=== PATIENT | female | born 1940 | race Caucasian/White ===

== ENCOUNTER → 2017-09-03 | Outpatient (CLI) | payer OTHER ==
[~2017-09-03] VITALS: Ht 264.2 cm; Wt 54.3 kg
[~2017-09-03] MED LIST: ASPIRIN325 PO; CALCIUM500 M1 PO; CELEXA10 MG PO; CENTRUM SILVER1 EAC4 PO; IBUPROFEN 200200 M1 PO; LEXAPRO 10 MG T10 M2 PO; LIPITOR 20 MG T20 M1 PO; LISINOPRIL20 MG PO; LISINOPRIL40 MG PO; MAGNESIUM250 M1 PO; MAGOX 400400 MG PO; NABUMETONE 500500 M2 PO; NORVASC5 MG PO; TOPROL XL25 MG PO; VITAMIN B-12500 MCG PO; ZOCOR20 MG PO
--- NOTE | ~2017-09-03 | HPC ---
[facility] [address] [place] [address] PAIN MANAGEMENT CONSULTATION Name: JAYY AVITIA Room #: REG [facility] Vladislav#: [id number] Admission: 09/03/17 Attend Phys: Ozzie Wood DO Discharge: Date of : 40 Report #: [id number] THIS REPORT FOR: //name// CC: UJAN Wood The patient is a very pleasant 77-year-old female seen in consultation at the request of Dr. Rigo Lynch for assistance with management of pain in left hip, buttock, posterior lateral leg to the foot. The patient notes symptoms began several months ago without specific antecedent trauma and overuse. It has been 4 or 5 months out of the year in [place]. They returned 2 weeks ago with increased lifting and moving. When they arrived home, symptoms significantly got worse. She notes she does have paresthesia down to the lateral aspect of the leg, burning dysesthesia in L4 distribution. Fortunately, she denies weakness, myelopathic symptoms including bowel or bladder continence changes or saddle anesthesia. To her credit, she has been doing core therapy, strengthening and stretching exercises since symptoms were noted. She does take ibuprofen over the counter all with nominal efficacy. She rates her pain at 7-8 on VAS. She describes steady, burning, aching pain exacerbated with walking, some relief with heat. REVIEW OF SYSTEMS: Complete review of systems attached to chart and gone over with the patient. She is , does not smoke or drink alcohol to excess. Hypertension, treated with metoprolol, lisinopril and Norvasc, Lexapro for some chronic anxiety and depression. Otherwise, 12 point review of systems is noncontributory. The patient is retired. Pain impact score is 37/70. Physical exam reveals a 5 feet 4 inch, 120 pound female. Blood pressure is 119/59, pulse 71, respirations 16. Cranial nerves 2-12 are grossly intact. Pupils are equal and react to light and accommodation. Extraocular muscles are intact. Thyroid is unremarkable. Cervical range of motion is full. Upper extremity strength is preserved. Heart is regular and rhythmical without murmur. Lungs clear to auscultation. Rises from chair using armrest. Has a modestly antalgic gait. Lumbar flexion is good to 90 degrees. She is unable to walk on her left heel. Toe walking is symmetric. Grossly positive straight leg raise at 30 degrees on the left. Left dorsiflexion and lower extremity extension strength is diminished 3/5, hip flexion is about 4/5, all exacerbate pain. Right leg is stronger at 4-5/5 with negative straight leg raise. Patellar and Achilles reflexes are generally preserved. Skin integument is intact. There are no recent diagnostic studies available for evaluation at this time. [address] [address] PAIN MANAGEMENT CONSULTATION Name: JAYY AVITIA Room #: REG [facility]#: [id number] Admission: 09/03/17 Attend Phys: Ozzie Wood DO Discharge: Date of : 40 Report #: [id number] ASSESSMENT: Symptomatic lumbar radiculopathy by clinical exam and history, left L4 distribution. Possible component of some left sacroiliac mediated pain as she did have a modestly positive Ghanshyam test on this side, modestly positive Gaenslen's and some tenderness over the left sacroiliac area. RECOMMENDATIONS: 1. Lumbar epidural injection under fluoroscopy at L4-L5. 2. Discontinue [id number] anti-inflammatories. We will start the patient on nabumetone 500 mg b.i.d. 3. Follow up in 3 weeks for reevaluation. Consideration for repeat injection (LESI) if indicated clinically versus left SI joint injection under fluoroscopy. PROCEDURE: Lumbar epidural injection under fluoroscopy. PROCEDURE NOTE: After both written and informed consent to include risk of spinal cord damage, increased pain, weakness and dural puncture, the patient was taken to the fluoroscopy suite, placed in the prone position. After sterile prep and drape, a skin wheal with lidocaine was raised. A 22-gauge epidural Tuohy needle was inserted in the midline at L4-L5 with good loss to resistance. Negative aspiration for cerebrospinal fluid or blood was noted. Then 1 mL of Omnipaque under biplanar fluoroscopy showed good spread within the epidural space. This was followed with 80 mg of triamcinolone plus 1 mL of 1.5% preservative-free Xylocaine, 0.5 mL Xylocaine was then injected to flush the needle; it was removed. The patient was monitored for an appropriate period of time and discharged in good and stable condition. Thank you for allowing me to participate in the patient's critical care. I will keep you abreast of her progress. <ELECTRONICALLY SIGNED> By: Ozzie Wood DO 09/07/17 0822 1200 Ozzie Wood DO /nt
[2017-09-03 09:13] VITALS: BP 119/59
== END | disposition home or self-care (01) ==
LOC: PAIN 07:07
DX: M54.16 Radiculopathy, lumbar region (principal); G89.29 Other chronic pain; I10 Essential (primary) hypertension; F41.8 Other specified anxiety disorders; F32.89 Other specified depressive episodes; Z87.891 Personal history of nicotine dependence; Z79.899 Other long term (current) drug therapy; Z79.82 Long term (current) use of aspirin